=== PATIENT | male | born 1960 | race Caucasian/White ===

== ENCOUNTER 2019-02-06 09:02 | Day surgery (SDC) | payer OTHER ==
[2019-02-06] MEDS ORDERED: LACTATED RINGERS 1,000 ML IV ONE (10:06)
[2019-02-06] MEDS ORDERED: MIDAZOLAM 2 MG/2 ML VIAL IVP ONE (11:25)
[2019-02-06] MEDS ORDERED: fentaNYL 250 MCG/5 ML VIAL IVP ONE (11:25)
[2019-02-06 12:18] VITALS: BP 138/87
== END 2019-02-06 09:03 | disposition home or self-care (01) ==
LOC: SDS 09:02
PROVIDERS: ATTEND Internal Medicine Gastroenterology
PROC: 0DBL8ZZ Excision of Transverse Colon, Via Natural or Artificial Opening Endoscopic (ICD-10-PCS; 2019-02-06)
PROC: 0DBP8ZZ Excision of Rectum, Via Natural or Artificial Opening Endoscopic (ICD-10-PCS; 2019-02-06)
PROC: 0DBH8ZZ Excision of Cecum, Via Natural or Artificial Opening Endoscopic (ICD-10-PCS; principal; 2019-02-06 11:00)
DX: Z12.11 Encounter for screening for malignant neoplasm of colon (principal); D12.0 Benign neoplasm of cecum; D12.3 Benign neoplasm of transverse colon; K62.1 Rectal polyp; K57.30 Diverticulosis of large intestine without perforation or abscess without bleeding; Z79.82 Long term (current) use of aspirin
CPT/HCPCS: 45380; J3010; J7120